=== PATIENT | male | born 1975 | race Caucasian/White ===

== ENCOUNTER 2021-01-14 01:42 | Outpatient (CLI) | payer MEDICAID, SELFPAY ==
[2021-01-14 07:32] LABS: HCT 49.3 % (40.0-50.0); HGB 16.8 g/dL (13.5-17.5); MCH 33.1 pg (27.0-33.0); MCHC 34.1 % (32.0-36.0); MCV 97.2 fL (80-95); MPV 9.3 fL (8.0-11.0); Platelet Count 204 10^3/uL (130-400); RBC 5.07 10^6/uL (4.36-5.78); RDW 12.2 % (11.8-14.1); RDW-SD 44.2 fL; WBC 4.01 10^3/uL (4.4-10.8)
[2021-01-14 08:48] LABS: ALT 31 U/L (16-63); AST 12 U/L (15-37); Albumin 4.1 g/dL (3.4-5.0); Alkaline Phosphatase 76 U/L (46-116); Anion Gap 8.8 mmol/L (3-11); BUN 24 mg/dL (7-18); Bilirubin, Total 1.3 mg/dL (0.2-1.0); CO2 27.2 mmol/L (21.0-32.0); CREATININE 0.9 mg/dL (0.70-1.30); Calcium 8.8 mg/dL (8.5-10.1); Chloride 104 mmol/L (98-107); FREE T4 0.98 ng/dL (0.76-1.46); Glucose 98 mg/dL (74-106); Potassium 4.6 mmol/L (3.5-5.1); Sodium 140 mmol/L (136-145); Total Protein 7.3 g/dL (6.4-8.2)
[2021-01-14 09:26] LABS: Calculated LDL 100 mg/dL (<100); Cholesterol 161 mg/dL (<200); HDL Cholesterol 55 mg/dL (40-60); Triglyceride 31 mg/dL (<150)
[2021-01-14 16:36] LABS: T3, Total 114 ng/dL (97-169)
[2021-01-14 17:09] LABS: Estradiol 37 pg/mL (<40)
[2021-01-14 17:40] LABS: FSH 3.2 mIU/mL (1.4-18.1); PSA, Screening 1.1 ng/mL (0.0-2.5); Prolactin 6.7 ng/mL (2.1-17.7)
[2021-01-18 15:27] LABS: Thyroid Stimulating Immunoglob <1.0 TSI index (<=1.3)
[2021-01-21 09:47] LABS: Testosterone, Free 16.9 ng/dL (4.26-16.4); Testosterone, Total 736 ng/dL (240-950)
== END 2021-01-14 01:43 | disposition home or self-care (01) ==
LOC: LBO 01:43
PROVIDERS: Visit Provider Naturopath
DX: F64.9 Gender identity disorder, unspecified (principal); Z79.890 Hormone replacement therapy
CPT/HCPCS: 36415; 80053; 80061; 84153; 84402; 84403; 85027; 82670; 83001; 83002; 84146; 84439; 84445; 84480

== ENCOUNTER 2021-04-02 01:15 | Outpatient (CLI) | payer MEDICAID, SELFPAY ==
[2021-04-02 17:01] LABS: Abs Immature Grans 0.03 10^3/uL (0.0-0.06); Absolute Basophil Count 0.05 10^3/uL (0.0-0.2); Absolute Lymphocyte Count 1.52 10^3/uL (1.2-3.4); Absolute Monocyte Count 0.89 10^3/uL (0.1-0.8); Basophils % 0.4; Eosinophils % 0.2; HCT 49.2 % (40.0-50.0); HGB 16.5 g/dL (13.5-17.5); Immature Grans % 0.2; Lymphocytes % 12.2; MCH 33.5 pg (27.0-33.0); MCHC 33.5 % (32.0-36.0); MPV 9.4 fL (8.0-11.0); Monocytes % 7.2; Neutrophils % 79.8; Nucleated RBC 0 %; Platelet Count 245 10^3/uL (130-400); RBC 4.92 10^6/uL (4.36-5.78); RDW 12.8 % (11.8-14.1); RDW-SD 47.8 fL; WBC 12.43 10^3/uL (4.4-10.8)
[2021-04-02 18:26] LABS: Absolute Eosinophil Count 0.02 10^3/uL (0.0-0.7); Absolute Neutrophil Count 9.92 10^3/uL (1.2-6.7)
[2021-04-08 13:02] LABS: Testosterone, Total 23 ng/dL (240-950)
[2021-04-08 13:54] LABS: Estradiol, Mass Spectrometry 1780 pg/mL (10-40); Estrone 619 pg/mL (10-60)
== END 2021-04-02 01:16 | disposition home or self-care (01) ==
LOC: LBO 01:15
PROVIDERS: Visit Provider Naturopath
DX: F64.9 Gender identity disorder, unspecified (principal); Z79.890 Hormone replacement therapy
CPT/HCPCS: 36415; 84403; 82670; 82679; 85025

== ENCOUNTER 2021-05-06 09:31 | Outpatient (CLI) | payer MEDICAID, SELFPAY | END 2021-05-06 09:32 | disposition home or self-care (01) | LOC: DI.CARD 09:32 | PROVIDERS: Visit Provider Internal Medicine Cardiovascular Disease | DX: Z53.8 Procedure and treatment not carried out for other reasons (principal) | CPT/HCPCS: 93010 ==

== ENCOUNTER 2022-05-11 03:11 | Outpatient (CLI) | payer MEDICAID, SELFPAY ==
[2022-05-11 09:37] LABS: Abs Immature Grans 0.02 10^3/uL (0.0-0.06); Absolute Basophil Count 0.06 10^3/uL (0.0-0.2); Absolute Eosinophil Count 0.17 10^3/uL (0.0-0.7); Absolute Lymphocyte Count 1.09 10^3/uL (1.2-3.4); Absolute Monocyte Count 0.78 10^3/uL (0.1-0.8); Basophils % 0.7; Eosinophils % 1.9; HCT 44.6 % (40.0-50.0); HGB 14.9 g/dL (13.5-17.5); Immature Grans % 0.2; Lymphocytes % 12.1; MCH 34.3 pg (27.0-33.0); MCHC 33.4 % (32.0-36.0); MCV 103 fL (80-95); MPV 8.9 fL (8.0-11.0); Monocytes % 8.6; Neutrophils % 76.5; Platelet Count 203 10^3/uL (130-400); RBC 4.34 10^6/uL (4.36-5.78); RDW 13.8 % (11.8-14.1); RDW-SD 53.3 fL; WBC 9.02 10^3/uL (4.4-10.8)
[2022-05-11 10:28] LABS: ALT 49 U/L (16-63); AST 22 U/L (15-37); Albumin 3.4 g/dL (3.4-5.0); Alkaline Phosphatase 85 U/L (46-116); Anion Gap 5.2 mmol/L (3-11); BUN 25 mg/dL (7-18); Bilirubin, Total 0.5 mg/dL (0.2-1.0); CO2 29.8 mmol/L (21.0-32.0); CREATININE 0.9 mg/dL (0.70-1.30); Calcium 8.3 mg/dL (8.5-10.1); Chloride 105 mmol/L (98-107); Cholesterol 144 mg/dL (<200); Estimated GFR 105.35 (mL/min/1.73m2); Glucose 99 mg/dL (74-106); HDL Cholesterol 65 mg/dL (40-60); Potassium 4.3 mmol/L (3.5-5.1); Sodium 140 mmol/L (136-145); Total Protein 6.9 g/dL (6.4-8.2)
[2022-05-11 10:33] LABS: Triglyceride < 25 mg/dL (<150)
[2022-05-11 12:19] LABS: LDL CHOLESTEROL 72 mg/dL (<100)
[2022-05-11 17:58] LABS: Estradiol 850 pg/mL (<40)
[2022-05-12 14:25] LABS: Hemoglobin A1C 5.7 % (<5.7)
[2022-05-16 19:44] LABS: Testosterone, Total 13 ng/dL (240-950)
== END 2022-05-11 03:12 | disposition home or self-care (01) ==
PROVIDERS: Visit Provider Naturopath
DX: F64.9 Gender identity disorder, unspecified (principal); Z79.890 Hormone replacement therapy
CPT/HCPCS: 36415; 80053; 80061; 83721; 84403; 82670; 83036; 84146; 85025

== ENCOUNTER 2023-04-24 07:57 | Emergency (ER) | payer MEDICAID, SELFPAY ==
[2023-04-24] VITALS (41 sets, daily range): BP systolic 113–155; BP diastolic 77–110; PULSE 58–116; RESP 13–23; TEMP 36.6–36.9; O2SAT 95–100
--- NOTE | 2023-04-24 08:00 | RT.EKG_ITS ---
APPROVED REPORT Exam: Resting ECG Reason for Exam: Palpitations Patient Location: E HR:103 bpm ECG Measurements Heart Rate 103 AXIS MA [id number] P [id number] QRSd 117 QRS -32 QT 347 T 54 QTc 456 Conclusion Atrial fibrillation...V-rate 83-167, irreg A-activity Incomplete RBBB and LAFB...axis(240,-40), S>R II III aVF Rate controlled atrial fibrillation at a rate of 103 bpm with incomplete right bundle branch block an d left axis deviation?incomplete bifascicular block. QTc within normal limits. No ST segment e levations nor depressions. No prior for comparison.
--- NOTE | 2023-04-24 08:02 | ED.GENADUL_ITS ---
Discharge Plan Disposition Patient Disposition: Home Discharge Details Clinical Impression: New onset atrial fibrillation Primary Care Provider: None,None ED Provider: Ceasar Mcgarry Home Meds and New Rx's Prescriptions: Continued estradiol ginette-testosteron enan 4-90 mg/mL syringe See Rx Instructions IM .COMPLEX Hold Instructions: per provider Patient Comments: 04/15/21 Per med list from Yany Alfaro at [facility] pt takes(40MG/ML) Admin 0.15ml IM Q 5 days RH Rx Instructions: IM; magnesium oxide 400 mg magnesium tablet 400 mg PO DAILY tumeric cholecalciferol (vitamin D3) 10 mcg (400 unit) capsule 10 mcg PO DAILY omega 1-qmh-ead-fish oil [Fish Oil] 60-90-500 mg capsule 1 cap PO DAILY Discharge Instructions Instructions: A-fib (Atrial Fibrillation) (ED) Additional Instructions: You were seen in the emergency department for your palpitations. You are found to be in atrial fibrillation. Please follow-up with your primary care provider in the next week as she will likely benefit from a Holter monitor to assess how often you are in this rhythm. Please return to the emergency department as we discussed if you pass out or develop chest pain or have any other concerns. Discharge Data Discharge Date/Time-TO BE ENTERED AT DEPARTURE: 04/24/23 12:07 HPI General Date/Time Provider Initiated Documentation: 04/24/23 08:01 . HPI Narrative: MDM This is an overall very well-appearing normothermic and not hypotensive 47-year-old patient with atrial fibrillation with rapid ventricular response but no indication for anticoagulation based on low [id number] score of 0. Given unknown onset of palpitations will defer cardioversion at this point. Given patient is symptomatic secondary to palpitations we will trial low-dose oral diltiazem at 30 mg. Given hormone replacement and chest pain will obtain 2 troponins to assess for ACS. No trauma and equal breath sounds so doubt pneumothorax. Not hypotensive nor dialysis patient to suggest increased risk for tamponade. No history of shortness of breath nor signs of volume overload on exam so we will defer proBNP as my suspicion for acute CHF is exceedingly low. No rash to chest to suggest zoster. No pain out of proportion to suggest necrotizing soft tissue infection. No cough nor fever to suggest pneumonia. No history of emesis to suggest increased risk for esophageal rupture. I considered PE however the patient is not short of breath and chest pain only lasts seconds I did not send a D-dimer. No tearing quality to suggest aortic dissection. Will obtain TSH and magnesium levels given palpitations. 8:45 AM CBC with no leukocytosis nor thrombocytopenia. Macrocytosis without anemia. 9:15 AM Negative troponin. Reassuring comprehensive metabolic panel with no CHU no acute electrolyte abnormalities. Mildly elevated BUN similar to prior. No LFT abnormalities. Very mild hypomagnesemia for which patient will receive oral repletion. Reassuring normal TSH. 10:34 AM Chest x-ray read by virtual radiology as showing no acute disease or suspicious finding. 10:56 AM I have asked health community education coordinator Bee to have the patient seen within the week by primary care in the setting of new onset atrial fibrillation.Patient reported no significant change in palpitations following diltiazem labs as a result will defer discharging patient on diltiazem given rate controlled atrial fibrillation prior to arrival. Patient will likely benefit from a Holter monitor but will defer this decision to primary care. 11:37 AM Reassuring repeat negative troponin. Will proceed with an empiric trial of expectant outpatient management. Blood pressure normalized without intervention in the emergency department. HEART SCORE Chest pain Diagnostic Protocol: [-History/Physical/Gestalt: Slightly Suspicious (0)] [- EKG: Nonspecific repolarization (+1)] [- AGE: 45-65 (+1)] [- RISK FACTORS: 1 - 2 risk factors (+1)] [-TROPONIN: <= normal limit (0)] - TOTAL SCORE: 3 - Risk Factors: DM, current or recent smoker, HTN, HLD, family hx of CAD, obesity - INTERPRETATION: With a total score of 3 or less, risk of major cardiac event within six weeks 1.7%, likely lower with two negative troponins. [I explained to the patient that the risk of subsequent major cardiac event within 1 month is not 0, however risk predicted to be less than 2%. Patient verbalized understanding, accepts this risk and shared and the decision for discharge with PCP follow-up for further evaluation and management. They understand to return to the ED immediately with any worsening symptoms, new symptoms or other concerns.] Chronic conditions affecting the care of the patient: Estrogen replacement History obtained from an outside historian: N/A External record review: [place] [facility] [place] [Diagnostic interpretations performed by me: Per my independent interpretation chest x-ray shows:No acute cardiopulmonary process 2 view chest. Per my independent interpretation EKG shows: Rate controlled atrial fibrillation at a rate of 103 bpm with incomplete right bundle branch block and left axis deviation??incomplete bifascicular block. QTc within normal limits. No ST segment elevations nor depressions. No prior for comparison. Medications: Diltiazem Social determinants of health affecting disposition: N/A Management discussed with: N/A Treatment/interventions considered: Cardioversion but deferred Response to therapies provided: No symptomatic improvement with diltiazem HPI This is a 47-year-old patient with a history of palpitations arrived to the emergency department with persistent palpitations and chest pain. Patient does report that chest pains occurred this morning twice after waking up at 5:15 PM. Chest pains are left-sided and sharp lasting seconds. Patient has not had any syncope. Pain does not radiate. Remote history of stress test which was reportedly reassuring. Patient has never had a nuts and bolts assembler nor Holter monitor. Patient has not been nauseous vomiting coughing nor had any fevers or chills. Patient has never had a stroke nor TIA. No personal history nor family history of coronary artery disease. No history of hypertension diabetes nor hyperlipidemia. Patient is a daily tobacco user denies routine ethanol and occasionally smokes marijuana. Patient has not noticed any rash to chest. Exam General: Well-appearing in no acute distress speaking in complete sentences. Head: Normocephalic, atraumatic. Eye: Extraocular eye movements intact. No conjunctival injection. No scleral icterus. Ear, nose, mouth, throat: Grossly normal inspection. Normal voice, handling secretions normally. Neck: Trachea midline. Cardiovascular: Well-perfused distal extremities. Irregularly irregular rhythm Respiratory: Nonlabored respiration. Clear lungs bilaterally Gastrointestinal: Nondistended abdomen. Musculoskeletal: No significant lower extremity pitting edema. Moving all 4 extremities spontaneously. Skin: Normal for age and race, grossly normal temperature and turgor. No acute rash. Neurologic: Alert and appropriate, no apparent acute deficits. Psychiatric: Mood and manner are appropriate. Grooming and personal hygiene are appropriate. Related Data Home Medications Medication Instructions Recorded Confirmed estradiol valerate-testosterone See Rx Instructions IM .COMPLEX 04/15/2104/24 enanthate 4 mg-90 mg/mL IM syringe magnesium oxide 400 mg PO DAILY 04/19/21 04/24/23 cholecalciferol (vitamin D3) 10 10 mcg PO DAILY 04/24/23 04/24/23 mcg (400 unit) capsule omega 9-ccr-wkq-fish oil 60 mg-90 1 cap PO DAILY 04/24/23 04/24/23 mg-500 mg capsule (Fish Oil) tumeric 04/24/23 Allergies Allergy/AdvReac Type Severity Reaction Status Date / Time No Known Allergies Allergy Unverified 04/24/23 08:11 PFSH All Active Problems (Updated 04/24/23 @ 10:57 by Ceasar Mcgarry MD) New onset atrial fibrillation (Acute) Blood urea abnormal (Acute) Total bilirubin, elevated (Acute) Elevated MCV (Acute) Pyloric stenosis (Acute) 04/19/21 pt is 6 wks s/p surgical repair RH Irregular heartbeat (Acute) History of ongoing treatment with hormonal therapy (Acute) fir gender incongruence RH Gender identity disorder (Acute) Glaucoma (Chronic) Medical History ADD (attention deficit disorder) Surgical History Rectal fistula Social History Smoking/Tobacco Use Status: Former Tobacco Use Quit Date: 04/24/05 Smoking risk assessment performed?: Yes Alcohol Intake: never Drug use: Occasionally Substance use type: marijuana Household members: family Number of Children: 4 current occupation: [employer] Current gender identity: trans [id number] What is your relationship status?: Panel score (0-1 are the most socially isolated patients): 1 What type of physical activity do you participate in: walking Duration: 15-30 minutes/day Frequency: 5-6 times per week
--- NOTE | 2023-04-24 08:15 | DI.RAD_ITS ---
Exam(s) XR CHEST 2V PA LATERAL EXAM: XR CHEST 2V PA LATERAL CLINICAL HISTORY: Chest pain TECHNIQUE: 2D digital imaging was performed. COMPARISON: No exams were available for comparison FINDINGS: HEART: Mildly enlarged. Aorta: Not dilated. PULMONARY VASCULATURE: Normal. LUNGS: Clear. PLEURAL SPACE: No pleural effusion or pneumothorax. BONE:Unremarkable for age. Soft tissues: Unremarkable. IMPRESSION: No acute abnormality. DATA REPOSITORY: RADIATION DOSE DELIVERED:
[2023-04-24 08:41] LABS: Abs Immature Grans 0.01 10^3/uL (0.0-0.06); Absolute Basophil Count 0.05 10^3/uL (0.0-0.2); Absolute Eosinophil Count 0.06 10^3/uL (0.0-0.7); Absolute Lymphocyte Count 0.83 10^3/uL (1.2-3.4); Absolute Monocyte Count 0.59 10^3/uL (0.1-0.8); Absolute Neutrophil Count 3.27 10^3/uL (1.2-6.7); Eosinophils % 1.2; HCT 48.8 % (40.0-50.0); HGB 16.8 g/dL (13.5-17.5); Immature Grans % 0.2; Lymphocytes % 17.3; MCH 33.7 pg (27.0-33.0); MCHC 34.4 % (32.0-36.0); MCV 98 fL (80-95); MPV 9.4 fL (8.0-11.0); Monocytes % 12.3; Platelet Count 251 10^3/uL (130-400); RBC 4.99 10^6/uL (4.36-5.78); RDW 12.6 % (11.8-14.1); RDW-SD 45.2 fL; WBC 4.81 10^3/uL (4.4-10.8)
[2023-04-24] MEDS: dilTIAZem 30 MG TAB PO (08:47)
[2023-04-24 09:05] LABS: ALT 27 U/L (16-63); AST 13 U/L (15-37); Albumin 3.7 g/dL (3.4-5.0); Alkaline Phosphatase 67 U/L (46-116); Anion Gap 9.1 mmol/L (3-11); BUN 24 mg/dL (7-18); Bilirubin, Total 0.8 mg/dL (0.2-1.0); CO2 25.9 mmol/L (21.0-32.0); CREATININE 0.8 mg/dL (0.70-1.30); Calcium 9.4 mg/dL (8.5-10.1); Chloride 101 mmol/L (98-107); Estimated GFR 108.49 (mL/min/1.73m2); Glucose 95 mg/dL (74-106); Potassium 4.5 mmol/L (3.5-5.1); Sodium 136 mmol/L (136-145); Total Protein 7.3 g/dL (6.4-8.2)
[2023-04-24 09:06] LABS: Magnesium 1.7 mg/dL (1.8-2.4); TSH (W/Ref FT4) 1.27 uIU/mL (0.36-3.74); Troponin I < 50 ng/L (<or=60)
[2023-04-24] MEDS: Magnesium Oxide 400 MG TAB PO (09:29)
--- NOTE | 2023-04-24 10:06 | DI.VRAD_ITS ---
PROCEDURE INFORMATION: Exam: XR Chest Exam date and time: 04/24/2023 8:43 AM Age: 47 years old Clinical indication: Other: Chest pain TECHNIQUE: Imaging protocol: Radiologic exam of the chest. Views: 2 views. COMPARISON: No relevant prior studies available. FINDINGS: Lungs: Normally expanded and clear. Unremarkable tracheobronchial tree. Pleural spaces: Normal. Heart/Mediastinum: Unremarkable. Vasculature: Normal pulmonary vessels. Bones/joints: Intact and normally aligned. No suspicious lesion. Soft tissues: Unremarkable. IMPRESSION: No acute disease or suspicious finding. Dictated and Authenticated by: Jeff Da Silva MD. Ordering:KORI Mcdonough MD
[2023-04-24 11:30] LABS: Troponin I < 50 ng/L (<or=60)
--- NOTE | 2023-04-24 13:17 | NUR.NOTE ---
Referral given to Care Management to PCP, Yany Moran, for new onset avig in 1 week. Nursing Note:
== END 2023-04-24 12:07 | disposition home or self-care (01) ==
PROVIDERS: Emergency Provider Emergency Medicine
DX: I48.91 Unspecified atrial fibrillation (principal); I45.2 Bifascicular block; E11.9 Type 2 diabetes mellitus without complications; I10 Essential (primary) hypertension; E78.5 Hyperlipidemia, unspecified; Z82.49 Family history of ischemic heart disease and other diseases of the circulatory system; Z87.891 Personal history of nicotine dependence
CPT/HCPCS: 36415; 80053; 93005; 99284; 71046; 83735; 84443; 84484; 85025; 93010